=== PATIENT | female | born 1950 | race Caucasian/White ===

== ENCOUNTER 2016-10-14 07:20 | Day surgery (SDC) | payer MEDICARE, OTHER ==
[~2016-10-14] VITALS: Ht 165.1 cm; Wt 66.7 kg
[~2016-10-14 07:20] MED LIST: Lactated Ringer's 1,000 ML IV ONE
[2016-10-14] MEDS ORDERED: fentaNYL-PF 50 mCg/mL 2 mL Inj ONE (07:21)
[2016-10-14] MEDS ORDERED: Propofol 10,000 mCg/mL 20 mL Inj ONE (07:21)
[2016-10-14] MEDS ORDERED: ASPI-973 PO (07:51)
[2016-10-14 07:52] VITALS: BP 117/73; PULSE 58; RESP 16; O2SAT 98
[2016-10-14] MEDS ORDERED: PROP60CA8 PO (07:52)
[2016-10-14] MEDS ORDERED: NORT10CA PO (07:52)
--- NOTE | 2016-10-14 08:18 | PCM.HPANE ---
Patient Data Surgeon Admitting Provider: Attending Provider:Sharan Garland MD Primary Care Physician:Darshan Phillips MD Other Provider:Mary Carmen Barfield Anesthesia Reason for Visit Abnormal Findings On Imaging Ht/WT & BMI Height (Feet): 5 Height (Inches): 5 Weight (Kilograms): 66.68 Body Mass Index 24.00 Allergies Coded Allergies: Ddsynqt-Nxe-Alo Reductase Inhibitor (Verified Allergy, Intermediate, muscle pains, 10/14/16) nitrofurantoin (Verified Allergy, Intermediate, HIVES, 11/16/14) Past Anesthesia History Anesthesia History: Denies:: Abnormal Airway, Anesthesia Reactions, Difficult Intubation, Fam Anesthesia Reaction, Fam Malignant Hypertherm, Malignant Hyperthermia Diabetes History Hx Diabetes?: No MRSA MRSA: No Medications Blood Thinner: Aspirin Last Dose Blood Thinner: Oct 13, 2016 Home Meds Incl Beta Alena: No Reported Medications Propranolol ER (Inderal LA)60 Mg CapsuleUnknown Dose PO DAILY Ref 0 10/14/16 Nortriptyline 10 Mg CapsuleUnknown Dose PO HS 10/14/16 Aspirin 81 Mg [id number] Mg PO DAILY Ref 0 10/14/16 History HEENT History: Denies:: Abnormal Airway Difficult Intubation Dysphagia Hearing Problem Hx of Heart Problems?: Yes Cardiovascular History: Denies:: AICD Atrial Fibrillation Chest Pain Hypertension Pacemaker Valvular Heart Disease Hx of Respiratory Problem?: No Respiratory History: Denies:: Asthma COPD Cough Hemoptysis Pneumonia Tuberculosis Neurological History: Denies:: CVA Hx of GI Problems?: Yes Gastrointestinal History: Denies:: Cirrhosis Diverticulitis (OSIS) Gall Bladder Disease Gastroesphageal Reflux Hiatal Hernia Liver Disease Rectal Bleeding Female Hx: Denies:: Currently Musculoskeletal History: Denies:: Fibromyalgia Joint Replacement Psycho Social History: Denies:: Anxiety Hx Depression Hx Surgeries?: Yes (FOOT SX, VAGINAL HYST. ) Hx Any Other Health Problems?: Yes Hx Diabetes: No Hx Alcohol Use: Yes (SOCIALLY) Smoking Status: Never Smoker Stop/Bang Treated for Sleep Apnea?: No Do You Have a CPAP Machine?: No S-Snoring: Do You Snore Loudly: No T-Tired: feel tired, fatigued: No O-Obsered: Observed not breath: No P-Blood Pressure: treated: No B- Body Mass Index > 35 kg/m2: No A- Age over 50: Yes N- Neck Large Circumference: No G- Gender Male: No VIKTORIA Total Score: 1 Risk Assessment Category Category 1A: Patient has history of documented sleep apnea, and HAS NOT received any narcotic, sedative or anesthesia administration during this stay. Category 1B: Patient has history of documented sleep apnea, and HAS received any narcotic , sedative or anesthesia administration during this stay Category 2: Patient has SUSPECTED Obstructive Sleep Apnea, and HAS received any narcotic , sedative or anesthesia administration during this stay. Category 3: Patient has SUSPECTED Obstructive Sleep Apnea and HAS NOT received narcotic, sedative or anesthesia administration during this stay. Category 4: Outpatient in Procedural Areas with known sleep apnea or who screen positive for High Risk via the STOP/BANG questionnaire. Exam Exam Vital Signs Vital Signs Date Time Temp Pulse Resp B/P Pulse Ox O2 Delivery O2 Flow Rate FiO2 10/14/16 07:52 37.0 58 16 117/73 98 Room Air General Appearance: Alert, Oriented X3, Cooperative, No Acute Distress HEENT/AIRWAY: MP 2, Neck Movement (FROM), Mouth Opening (3 FBMO) Lungs: Clear to Auscultation, Normal Air Movement Heart: Exam Unremarkable, Regular Rate/Rhythm, No Murmurs/Rubs/Gallops Meds/Labs/Diagnostics Admission Meds Current Medications Lactated Ringer's (Lr) 1,000 ml @ 10 mls/hr Q24H ONCE IV Last administered on 10/14/16t 07:59; Start 10/14/16 at 06:00; Stop 10/15/16 at 05:59 Plan Impression Patient chart reviewed, patient interviewed and anesthestic plan with risks, benefits, and alternatives discussed, and informed consent obtained. NPO Status: > 8 hrs ASA Physical Status: ASA2 Mod Systemic Disease Anesthetic Plan: GA, MAC Bene/Risks/Altern/Consents: Yes HP Complete Prior to Induction: Yes Grabiel Smith MD Oct 14, 2016 08:18
[2016-10-14 09:06] VITALS: BP 108/60; PULSE 53; RESP 16; O2SAT 98
[2016-10-14] MEDS ORDERED: Ondansetron 2 mg/mL 2 mL Inj IVPUSH PRN (09:15)
[2016-10-14] MEDS ORDERED: Lactated Ringer's 1,000 ML IV SCH (09:15)
[2016-10-14 09:16] VITALS: BP 124/69; PULSE 62; RESP 16; O2SAT 100
--- NOTE | 2016-10-14 09:16 | PCM.ANEP2 ---
Post Anesthesia Evaluation ASA/CMS Post Anesthesia VS in Patient's Normal Range?: Yes Resp Stable; Airway Patent?: Yes CV Function & Hydration Stable: Yes Mental Status Recovered?: Yes Pain control Satisfactory?: Yes N/V Control Satisfactory?: Yes Grabiel Smith MD Oct 14, 2016 09:16
--- NOTE | 2016-10-14 09:16 | PCM.ANEP1 ---
Post Anesthesia Phase 1 PACU Phase 1 Assessment Vital Signs Vital Signs Date Time Temp Pulse Resp B/P Pulse Ox O2 Delivery O2 Flow Rate FiO2 10/14/16 09:06 53 16 108/60 98 Room Air 10/14/16 07:52 37.0 58 16 117/73 98 Room Air Anesthetic Administered: GA, MAC Level of Alertness: Awake, talking GONZALEZ's with Equal Strength: Yes Pain: No Nausea or Vomiting: No Oxygen Delivery: Room Air Lungs: Clear to Auscultation, Normal Air Movement Dermatome Level: Full Sensation Grabiel Smith MD Oct 14, 2016 09:15
[2016-10-14 09:26] VITALS: BP 121/69; PULSE 57; RESP 16; O2SAT 100
--- NOTE | 2016-10-14 10:18 | ENDO ---
[address] [address] ENDOSCOPY PROCEDURE PATIENT: ERIN JACK : 1950 MR#: [id number] ADMIT: 10/14/2016 JOB ID: [id number] PROCEDURE: Endoscopic ultrasound exam. INDICATION: The patient with ultrasound imaging that was done for abnormal liver function tests which revealed dilated bile ducts. Her liver function test abnormalities subsequently improved and was thought to be secondary to an adverse drug reaction. However, as her bile duct was dilated on ultrasound, MRCP imaging was obtained. MRI did not appreciate dilated bile duct. However, there was a question of possible eccentric focal narrowing versus a filling defect in the CBD, and therefore, EUS is being performed today. The patient has no complaints of abdominal pain, nausea, vomiting, and her most recent LFTs are normal. INSTRUMENTS USED: GF-ECT-180 linear echoendoscope. Please see Dr. Grabiel Smith's anesthesia report for details regarding ASA classification, Mallampati score, and medications. PROCEDURE DETAILS: After informed consent was obtained, the patient was brought into the GI suite, where she was placed on oxygen via nasal cannula and monitored with continuous pulse oximeter, telemetry, and blood pressure monitoring. A time-out was performed. Then, she was placed in a left lateral decubitus position and medications were administered for sedation. The standard linear echoendoscope was then introduced through the bite block and advanced without difficulty to the second portion of the duodenum. ENDOSCOPIC ULTRASOUND FINDINGS: Demonstrated the followin. The CBD measured about 3.6 mm. No filling defects were appreciated. There did not appear to be any segmental narrowing or dilation appreciated on imaging. 2. The pancreatic duct was identified and appeared to be normal in course and caliber. 3. The pancreatic parenchyma appeared normal. 4. The gallbladder was visualized and there appeared to be hyperechoic density suggestive of sludge. 5. Examined portions of the left lobe of the liver appeared unremarkable. 6. The splenic artery, splenic vein and portal vein had flow. 7. The left adrenal gland was appreciated and appeared normal. 8. The celiac axis was identified and appeared normal. IMPRESSION: No filling defect or dilation of the common bile duct appreciated. RECOMMENDATIONS: Follow up in the GI Clinic as needed. COMPLICATIONS: None. ESTIMATED BLOOD LOSS: 0.
[2016-11-16] MEDS ORDERED: THIA500T PO (08:05)
[2016-11-16] MEDS ORDERED: CHOL10008 PO (08:05)
[2016-11-16] MEDS ORDERED: POLY17PO6 PO (08:05)
== END 2016-10-14 23:59 | disposition home or self-care (01) ==
LOC: END 07:20
PROVIDERS: ATTEND Internal Medicine Gastroenterology
DX: R93.8 Abnormal findings on diagnostic imaging of other specified body structures (principal); R10.9 Unspecified abdominal pain; R07.89 Other chest pain; E05.90 Thyrotoxicosis, unspecified without thyrotoxic crisis or storm; E78.5 Hyperlipidemia, unspecified; D68.51 Activated protein C resistance; Z79.82 Long term (current) use of aspirin; Z90.710 Acquired absence of both cervix and uterus
CPT/HCPCS: 43237; J3010; J7120

== ENCOUNTER 2016-11-17 07:10 | Day surgery (SDC) | payer MEDICARE, OTHER ==
[~2016-11-17] VITALS: Ht 165.1 cm; Wt 67.1 kg
[~2016-11-17 07:10] MED LIST changes: +ASPI-973 PO; +CHOL10008 PO; +NORT10CA PO; +POLY17PO6 PO; +PROP60CA8 PO; +Sodium Chloride LOK Flush 10 mL Syringe IV PRN; +THIA500T PO; +fentaNYL-PF 50 mCg/mL 2 mL Inj IVPUSH PRN
[2016-11-17 07:24] VITALS: BP 126/79; PULSE 65; RESP 14; O2SAT 97
[2016-11-17] MEDS: 0.9% Sodium Chloride 1,000 ML IV SCH ×2 (07:57→08:54)
[2016-11-17 09:01] VITALS: BP 135/72; PULSE 52; RESP 16; O2SAT 96
[2016-11-17 09:19] VITALS: BP 138/73; PULSE 67; RESP 12; O2SAT 100
--- NOTE | 2016-11-17 09:21 | ENDO ---
[address] [address] ENDOSCOPY PROCEDURE PATIENT: ERIN JACK : 1950 MR#: [id number] ADMIT: 11/17/2016 JOB ID: [id number] PROCEDURE: Colonoscopy. INDICATION: Abdominal pain. ASA CLASSIFICATION: 1. MALLAMPATI SCORE: 2. MEDICATIONS: Versed 4 mg and fentanyl 100 mcg. INSTRUMENT USED: PCF-H180-AL. PREPARATION QUALITY: Good. PROCEDURE DETAILS: After informed consent was obtained, the patient was brought into the GI suite, where she was placed on oxygen via nasal cannula and monitored with continuous pulse oximeter, telemetry, and blood pressure monitoring. A time-out was performed. Then, she was placed in a left lateral decubitus position and medications were administered for sedation. Digital rectal exam was performed, which was unremarkable. The colonoscope was then inserted into the rectum and advanced under visualization to the cecum, which was identified by the presence of the ileocecal valve and appendiceal orifice. Once the cecum was reached, the colonoscope was withdrawn back to the rectum, as the mucosa and lumen were examined. In the rectum, retroflexion was performed. Following retroflexion, remaining air in the rectum was suctioned, and procedure was completed. FINDINGS: Scattered diverticula were seen throughout the left side of the colon. Otherwise normal exam from rectum to cecum. IMPRESSION: Left-sided diverticulosis. RECOMMENDATIONS: Repeat colonoscopy in 8 years. COMPLICATIONS: None. ESTIMATED BLOOD LOSS: 0. MTDD
== END 2016-11-17 23:59 | disposition home or self-care (01) ==
LOC: END 07:10
PROVIDERS: ATTEND Internal Medicine Gastroenterology
DX: K57.30 Diverticulosis of large intestine without perforation or abscess without bleeding (principal); R10.9 Unspecified abdominal pain; Z79.82 Long term (current) use of aspirin; Z79.899 Other long term (current) drug therapy
CPT/HCPCS: 45378; G0500; J7030